=== PATIENT | male | born 1970 | race American Indian/Alaskan Native ===

== ENCOUNTER 2021-12-23 06:37 | Emergency (ER) | payer BC ==
[2021-12-23] MEDS ORDERED: SODIUM CHLORIDE 0.9% 1000 ML 1,000 ML IV ONE (08:04)
[2021-12-23 08:24] LABS: Basophils # (Auto) 0.1 K/mm3 (0.0-0.1); Basophils % (Auto) 0.8 % (0.0-1.8); Eosinophils % (Auto) 0.3 % (0.0-4.3); Hematocrit 45.3 % (35.5-45.6); Hemoglobin 15.1 gm/dl (11.8-15.2); Lymphocytes # (Auto) 1.5 K/mm3 (1.2-5.4); Mean Corpuscular HGB Conc 33 % (32-34); Mean Corpuscular Volume 79 fl (84-94); Monocytes # (Auto) 0.9 K/mm3 (0.0-0.8); Monocytes % (Auto) 7.4 % (0.0-7.3); Platelet Count 348 K/mm3 (140-440); Red Blood Count 5.72 M/mm3 (3.65-5.03); Red Cell Distribution Width 16.4 % (13.2-15.2)
[2021-12-23 08:43] LABS: Calcium 8.4 mg/dL (8.4-10.2)
[2021-12-23] MEDS ORDERED: INSULIN REGULAR, HUMAN 100 UNITS/1 ML IV ONE (09:09)
[2021-12-23] MEDS ORDERED: ONDANSETRON 4 MG/2 ML INJ ONE (10:46)
--- NOTE | 2021-12-23 11:40 | Emergency Department Report ---
ED General Adult HPI - General Chief complaint: Hyperglycemia Stated complaint: hyperglycemia Time Seen by Provider: 12/23/21 06:49 Source: patient, EMS Mode of arrival: Stretcher Limitations: No Limitations - History of Present Illness Initial comments: Who presents with hyperglycemia. Patient states that he has an insulin pump and that it has been nonactive. He states that his sugars have read high and that he needs insulin. Patient states he is also fell down and hit his head however he did not lose consciousness he has some minor head pain. - Related Data Allergies Allergy/AdvReac Type Severity Reaction Status Date / Time Penicillins Allergy Rash Verified 12/23/21 06:52 ED Review of Systems ROS: Stated complaint: hyperglycemia Other details as noted in HPI Constitutional: denies: chills, fever Eyes: denies: eye pain, eye discharge, vision change ENT: denies: ear pain, throat pain Respiratory: denies: cough, shortness of breath, wheezing Cardiovascular: denies: chest pain, palpitations Endocrine: no symptoms reported Gastrointestinal: denies: abdominal pain, nausea, diarrhea Genitourinary: denies: urgency, dysuria Musculoskeletal: denies: back pain, joint swelling, arthralgia Skin: denies: rash, lesions Neurological: headache. denies: weakness, paresthesias Psychiatric: denies: anxiety, depression Hematological/Lymphatic: denies: easy bleeding, easy bruising ED Past Medical Hx - Past Medical History Hx Hypertension: Yes Hx Diabetes: Yes Additional medical history: high cholesterol, hypothyroidism - Surgical History Past Surgical History?: No - Social History Smoking Status: Never Smoker Substance Use Type: None ED Physical Exam - General Limitations: No Limitations General appearance: alert, in no apparent distress - Head Head exam: Present: atraumatic, normocephalic - Eye Eye exam: Present: normal appearance - ENT ENT exam: Present: mucous membranes moist - Neck Neck exam: Present: normal inspection - Respiratory Respiratory exam: Present: normal lung sounds bilaterally. Absent: respiratory distress - Cardiovascular Cardiovascular Exam: Present: regular rate, normal rhythm. Absent: systolic murmur, diastolic murmur, rubs, gallop - GI/Abdominal GI/Abdominal exam: Present: soft, normal bowel sounds - Rectal Rectal exam: Present: deferred - Extremities Exam Extremities exam: Present: normal inspection - Back Exam Back exam: Present: normal inspection - Neurological Exam Neurological exam: Present: alert, oriented X3 - Psychiatric Psychiatric exam: Present: normal affect, normal mood - Skin Skin exam: Present: warm, dry, intact, normal color. Absent: rash ED Course Vital Signs 12/23/21 12/23/21 12/23/21 06:45 06:46 07:00 Temperature 98.3 F Pulse Rate 111 H 109 H 107 H Respiratory 14 11 L 17 Rate Blood Pressure 146/87 146/87 Blood Pressure 132/90 [Left] O2 Sat by Pulse 97 96 95 Oximetry 12/23/21 12/23/21 12/23/21 07:16 07:30 07:46 Temperature Pulse Rate 111 H 111 H 114 H Respiratory 11 L 16 12 Rate Blood Pressure 130/86 146/87 124/85 Blood Pressure [Left] O2 Sat by Pulse 97 97 97 Oximetry 12/23/21 12/23/21 12/23/21 08:00 08:16 08:30 Temperature Pulse Rate 113 H 114 H 112 H Respiratory 17 11 L 14 Rate Blood Pressure 130/86 111/82 131/88 Blood Pressure [Left] O2 Sat by Pulse 97 97 96 Oximetry 12/23/21 12/23/21 12/23/21 08:46 09:00 09:16 Temperature Pulse Rate 124 H 123 H 118 H Respiratory 10 L 11 L 12 Rate Blood Pressure 123/89 115/85 113/78 Blood Pressure [Left] O2 Sat by Pulse 98 98 98 Oximetry 12/23/21 12/23/21 12/23/21 09:30 09:46 10:00 Temperature Pulse Rate 115 H 113 H 116 H Respiratory 12 11 L 17 Rate Blood Pressure 123/89 112/76 106/68 Blood Pressure [Left] O2 Sat by Pulse 99 99 100 Oximetry 12/23/21 12/23/21 12/23/21 10:16 10:30 10:46 Temperature Pulse Rate 114 H 116 H 119 H Respiratory 12 12 15 Rate Blood Pressure 131/85 110/78 114/81 Blood Pressure [Left] O2 Sat by Pulse 100 100 100 Oximetry 12/23/21 12/23/21 12/23/21 11:00 11:16 11:30 Temperature Pulse Rate 117 H 117 H 117 H Respiratory 12 15 11 L Rate Blood Pressure 114/81 116/79 116/79 Blood Pressure [Left] O2 Sat by Pulse 100 100 100 Oximetry - Reevaluation(s) Reevaluation #1: 12/23/21 11:52 Patient wants to leave AGAINST MEDICAL ADVICE he is not willing to stay to get a CT scan of his head ED Medical Decision Making - Lab Data Result diagrams: 12/23/21 08:07 12/23/21 08:07 Lab Results 12/23/21 12/23/21 12/23/21 Range/Units 06:43 08:07 08:07 WBC 12.6 H (4.5-11.0) K/mm3 RBC 5.72 H (3.65-5.03) M/mm3 Hgb 15.1 (11.8-15.2) gm/dl Hct 45.3 (35.5-45.6) % MCV 79 L (84-94) fl MCH 26 L (28-32) pg MCHC 33 (32-34) % RDW 16.4 H (13.2-15.2) % Plt Count 348 (140-440) K/mm3 Lymph % (Auto) 12.0 L (13.4-35.0) % [place] % (Auto) 7.4 H (0.0-7.3) % Eos % (Auto) 0.3 (0.0-4.3) % Baso % (Auto) 0.8 (0.0-1.8) % Lymph # (Auto) 1.5 (1.2-5.4) K/mm3 [place] # (Auto) 0.9 H (0.0-0.8) K/mm3 Eos # (Auto) 0.0 (0.0-0.4) K/mm3 Baso # (Auto) 0.1 (0.0-0.1) K/mm3 Seg Neutrophils % 79.5 H (40.0-70.0) % Seg Neutrophils # 10.0 H (1.8-7.7) K/mm3 Sodium 124 L (137-145) mmol/L Potassium 4.2 (3.6-5.0) mmol/L Chloride 84.4 L (98-107) mmol/L Carbon Dioxide 22 (22-30) mmol/L Anion Gap 22 mmol/L BUN 82 H (9-20) mg/dL Creatinine 4.0 H (0.8-1.3) mg/dL Estimated GFR 19 ml/min BUN/Creatinine Ratio 21 % Glucose 327 H (75-100) mg/dL POC Glucose 425 H (70-105) mg/dL Calcium 8.4 (8.4-10.2) mg/dL - Medical Decision Making Chief medical diagnosis: Hyperglycemia Differential medical diagnosis DKA, hypokalemia I will get a CBC, BMP, IV fluids and IV insulin Critical care attestation.: If time is entered above; I have spent that time in minutes in the direct care of this critically ill patient, excluding procedure time. ED Disposition Clinical Impression: Hyperglycemia Disposition: LEFT AGAINST MEDICAL ADVICE Is pt being admited?: No Does the pt Need Aspirin: No Condition: Stable Referrals: PRIMARY CARE, [Primary Care Provider] - 3-5 Days
[2021-12-23 11:45] VITALS: BP 116/79
== END 2021-12-23 12:45 | disposition left against medical advice (07) ==
LOC: ED 06:37
DX: E11.65 Type 2 diabetes mellitus with hyperglycemia (principal); Z88.0 Allergy status to penicillin; I10 Essential (primary) hypertension
CPT/HCPCS: 36415; 80048; 82962; 85025; 96361; 96374; 99284; J2405; J7030; 99283; Q9967; J1815